=== PATIENT | male | born 1970 | race Caucasian/White ===

== ENCOUNTER 2023-08-04 11:00 | Day surgery (SDC) | payer OTHER ==
[~2023-08-04] VITALS: Ht 175.3 cm; Wt 79.4 kg
[2023-08-04] MEDS ORDERED: fentaNYL citrate 0.05 MG/ML VIAL ONE (12:18)
[2023-08-04] MEDS ORDERED: LIDOCAINE 2% 100 MG/5 ML UJET TP ONE (12:18)
[2023-08-04] MEDS ORDERED: fentaNYL citrate 0.05 MG/ML VIAL IVP ONE (14:15)
== END 2023-08-04 13:23 | disposition home or self-care (01) ==
LOC: MDS 11:00 → MMU 11:16 → MDS 13:23
PROVIDERS: ATTEND Internal Medicine Gastroenterology
DX: Z12.11 Encounter for screening for malignant neoplasm of colon (principal); K63.5 Polyp of colon; K57.30 Diverticulosis of large intestine without perforation or abscess without bleeding; Z80.0 Family history of malignant neoplasm of digestive organs
CPT/HCPCS: 45385; J3010